=== PATIENT | male | born 1960 | race African-American/Black ===

== ENCOUNTER 2017-10-11 00:59 | Emergency (ER) | payer OTHER ==
[~2017-10-11] VITALS: Ht 177.8 cm; Wt 80.7 kg
[2017-10-11 02:29] VITALS: BP 189/116
== END 2017-10-11 02:49 | disposition home or self-care (01) ==
LOC: EME 00:59
PROC: 2W3DX1Z Immobilization of Left Lower Arm using Splint (ICD-10-PCS; principal; 2017-10-11)
DX: S69.92XA Unspecified injury of left wrist, hand and finger(s), initial encounter (principal); W18.30XA Fall on same level, unspecified, initial encounter; Z88.8 Allergy status to other drugs, medicaments and biological substances
CPT/HCPCS: 73110; 99281; 99283

== ENCOUNTER 2017-11-06 14:32 | Emergency (ER) | payer OTHER ==
[~2017-11-06] VITALS: Ht 175.3 cm; Wt 78.8 kg
[2017-11-06 15:40] LABS: HEMATOCRIT 33.7 % (38.0-50.0); HEMOGLOBIN 11.9 G/DL (12.5-16.6); MCHC 35.3 G/DL (30.0-36.0); MCV 87.8 FL (86-99); PLATELET COUNT 189 K/uL (156-360); RBC DIS.WIDTH-CV 11.3 % (11.8-14.6); RED BLOOD COUNT 3.84 M/uL (4.00-5.50); WHITE BLOOD COUNT 6.2 K/uL (4.1-10.2)
[2017-11-06 15:53] LABS: ALBUMIN 4.5 g/dL (3.2-4.8)
[2017-11-06 15:54] LABS: CHLORIDE 107 mEq/L (99-109); SODIUM 142 mEq/L (136-147)
[2017-11-06 15:56] LABS: GLUCOSE 93 mg/dL (70-99); TOTAL PROTEIN 6.8 g/dL (6.4-8.3)
[2017-11-06 15:58] LABS: TOTAL BILIRUBIN 0.6 mg/dL (0.0-1.0)
[2017-11-06 15:59] LABS: ALKALINE PHOSPHATASE 56 IU/L (3-129)
[2017-11-06 16:00] LABS: CREATININE 1.2 mg/dL (0.6-1.3); GFR ESTIMATE (CALCULATED) > 59 mL/min/ (58.99-99999)
[2017-11-06 16:01] LABS: AST (GOT) 24 IU/L (2-34); UREA NITROGEN (BUN) 18 mg/dL (9-23)
[2017-11-06 16:02] LABS: ALT (GPT) 17 IU/L (3-49)
[2017-11-06 16:05] LABS: TROP-I INTERPRETATION NEGATIVE; TROPONIN-I < 0.01 ng/mL (0.0-0.30)
[2017-11-06] MEDS ORDERED: FLEXERIL10 MG PO (16:13)
[2017-11-06] MEDS ORDERED: MOTRIN600 MG PO (16:13)
[2017-11-06 16:24] VITALS: BP 167/103
[2017-11-06 16:37] LABS: AMPHETAMINE NEGATIVE (500 ng/mL); BARBITURATES NEGATIVE (200 ng/mL); BENZODIAZEPINES NEGATIVE (150 ng/mL); BUPRENORPHINE NEGATIVE (10 ng/mL); COCAINE NEGATIVE (150 ng/mL); METHADONE NEGATIVE (200 ng/mL); METHAMPHETAMINE NEGATIVE (500 ng/mL); OPIATES (MORPHINE) NEGATIVE (100 ng/mL); OXYCODONE NEGATIVE (100 ng/mL); PHENCYCLIDINE NEGATIVE (25 ng/mL); PROPOXYPHENE NEGATIVE (300 ng/mL); THC CANNABINOIDS NEGATIVE (50 ng/mL); TRICYCLIC ANTIDEPRESSANTS NEGATIVE (300 ng/mL)
== END 2017-11-06 16:24 | disposition home or self-care (01) ==
LOC: EME 14:32
PROVIDERS: Physician Assistant
DX: Z04.1 Encounter for examination and observation following transport accident (principal); Z72.820 Sleep deprivation; I10 Essential (primary) hypertension; Z79.82 Long term (current) use of aspirin
CPT/HCPCS: 70450; 80053; 84484; 85027; 93005; 99281; 99284